=== PATIENT | male | born 1975 | race Caucasian/White ===

== ENCOUNTER 2017-01-16 07:20 | Day surgery (SDC) | payer OTHER ==
[~2017-01-16] VITALS: Ht 198.1 cm; Wt 188.2 kg
[2017-01-16] MEDS ORDERED: LR 1,000 ML IV.SOLN IV ONE (09:05)
[2017-01-16] MEDS ORDERED: fentaNYL CITRATE 250 MCG/5 ML AMP IV ONE (09:05)
[2017-01-16] MEDS ORDERED: SEVOFLURANE 15 MIN GAS INH ONE (09:05)
[2017-01-16] MEDS ORDERED: SUCCINYLCHOLINE CHLORIDE 20 MG/ML(QUELICIN) IVP ONE (09:05)
[2017-01-16] MEDS ORDERED: PROPOFOL 200MG/ 20ML VIAL (DIPRIVAN) IV ONE (09:05)
[2017-01-16] MEDS ORDERED: KETOROLAC TROMETHAMINE 30 MG VIAL IVP ONE (09:05)
[2017-01-16] MEDS ORDERED: NS IRRIG SOLN 1000 ML IR ONE (09:05)
[2017-01-16] MEDS ORDERED: MIDAZOLAM HCL 5 MG/5 ML VIAL IVP ONE (09:05)
[2017-01-16] MEDS ORDERED: ONDANSETRON HCL 4 MG/2 ML VIAL IVP ONE (09:05)
[2017-01-16] MEDS ORDERED: LR 1,000 ML IV SCH (09:35)
[2017-01-16] MEDS ORDERED: MEPERIDINE HCL/PF 50 MG/ML AMP IVP PRN ×2 (09:45)
[2017-01-16] MEDS ORDERED: MEPERIDINE HCL/PF 25 MG/ML DISP.SYRIN IVP PRN (09:45)
[2017-01-16] MEDS ORDERED: METOCLOPRAMIDE HCL 10 MG/2 ML VIAL IVP PRN (09:45)
[2017-01-16] MEDS ORDERED: ACETAMINOPHEN 500 MG TABLET PO PRN (10:15)
[2017-01-16] MEDS ORDERED: ACETAMINOPHEN 500 MG TABLET ONE (11:38)
[2017-01-16 13:31] VITALS: BP_SYST 130
== END 2017-01-16 13:31 | disposition home or self-care (01) ==
LOC: SDS 07:20 → SMU 07:21 → SDS 13:31
PROVIDERS: ATTEND Otolaryngology Plastic Surgery within the Head & Neck
DX: J35.03 Chronic tonsillitis and adenoiditis (principal); I10 Essential (primary) hypertension; J45.909 Unspecified asthma, uncomplicated; M19.90 Unspecified osteoarthritis, unspecified site; Z88.5 Allergy status to narcotic agent; Z88.0 Allergy status to penicillin; E66.01 Morbid (severe) obesity due to excess calories; Z88.8 Allergy status to other drugs, medicaments and biological substances; Z79.899 Other long term (current) drug therapy; G89.29 Other chronic pain
CPT/HCPCS: 42826; 71020; 88304; 93005; J7120; J0330; J1885; J2250; J2405; J2704; J3010